=== PATIENT | female | born 1955 | race Caucasian/White ===

== ENCOUNTER 2019-04-18 07:54 | Outpatient (CLI) | payer BC, SELFPAY ==
--- NOTE | ~2019-04-18 | MM_ITS ---
EXAMINATION: MM screening [facility] BI w nancy HISTORY: Screening mammogram TECHNIQUE: Craniocaudal and mediolateral oblique 3-D tomosynthesis images were obtained and synthetic 2-D images were generated. CAD analysis was submitted and interpreted. COMPARISON: No prior mammogram is available for comparison at this institution. BREAST PARENCHYMAL COMPOSITION: The breasts are almost entirely fatty. FINDINGS: RIGHT BREAST: There is a 5 mm mass in the anterior third of the upper outer quadrant of the breast 5. 8 cm from the nipple. LEFT BREAST: An asymmetry is present in the posterior third of the outer breast on the craniocaudal v iew 13 cm from the nipple. IMPRESSION: 1. Bilateral breast findings as described above. 2. Additional mammographic views and possible breast ultrasound are recommended. BI-RADS Category 0: Incomplete: Needs additional imaging evaluation. Reviewed, dictated and finalized at location A. ROCK MINER IMPRESSION: 1. Bilateral breast findings as described above. 2. Additional mammographic views and possible breast ultrasound are recommended . BI-RADS Category 0: Incomplete: Needs additional imaging evaluation.
[2019-04-18 08:09] LABS: Basophils Absolute Auto 0.09 K/mm3 (0.00-0.10); Basophils Percent Auto 1.2 % (0.0-1.0); Eosinophils Absolute Auto 0.26 K/mm3 (0.02-0.50); Eosinophils Percent Auto 3.4 % (1.0-6.0); Hematocrit 38.1 % (35.0-49.0); Hemoglobin 12.7 g/dL (12.0-15.0); Immature Granulocyte Absolute 0.01 K/mm3 (0.00-0.00); Immature Granulocyte Percent A 0.1 % (0.0-0.0); Lymphocytes Absolute Auto 2.25 K/mm3 (1.10-4.50); Mean Corpuscular HGB Conc 33.3 g/dL (32.0-36.0); Mean Corpuscular Hemoglobin 31.8 pg (27.0-31.0); Mean Corpuscular Volume 95.5 fL (78.0-102.0); Mean Platelet Volume 10.1 fl (9.2-11.8); Monocytes Absolute Auto 0.88 K/mm3 (0.10-0.90); Monocytes Percent Auto 11.3 % (2.0-11.0); Neutrophils Absolute Auto 4.3 K/mm3 (1.7-7.2); Platelet Count Result 304 K/mm3 (150-420); Red Blood Count 3.99 M/mm3 (4.20-5.40); Red Cell Distribution Width 12.4 % (11.6-14.4); White Blood Count 7.8 K/mm3 (4.8-10.8)
[2019-04-18 08:42] LABS: Alanine Aminotransferase 23 U/L (14-59); Albumin Level 3.8 g/dL (3.4-5.0); Alkaline Phosphatase 80 U/L (46-116); Anion Gap 13.3 mmol/L (7-16); Aspartate Amino Transferase 15 U/L (15-37); Bilirubin,Total 0.4 mg/dL (0.00-1.00); Blood Urea Nitrogen 18 mg/dL (7-18); Carbon Dioxide 29 mmol/L (21-32); Chloride 106 mmol/L (98-108); Cholesterol 189 mg/dL (0-200); Estimated Glomerular Filt Rate > 60; Glucose 96 mg/dL (70-99); HDL Direct 62 mg/dL (40-60); LDL Cholesterol Calculated 119 mg/dL (<130); Osmolality Calculated 299 mOsm/kg (285-295); Potassium 4.3 mmol/L (3.5-5.1); Sodium 144 mmol/L (136-145); Total Protein 7.3 g/dL (6.4-8.2); Triglycerides 39 mg/dL (0-150)
== END 2019-04-18 07:55 | disposition home or self-care (01) ==
PROVIDERS: PCP Family Medicine; Visit Provider Nurse Practitioner Family
DX: E78.2 Mixed hyperlipidemia (principal); I10 Essential (primary) hypertension; Z12.31 Encounter for screening mammogram for malignant neoplasm of breast
CPT/HCPCS: 36415; 77063; 77067; 80053; 80061; 85025

== ENCOUNTER 2019-05-09 09:27 | Outpatient (CLI) | payer BC, SELFPAY ==
--- NOTE | ~2019-05-09 | MMUS_ITS ---
EXAMINATION: MM diagnostic preethi BI w nancy, US breast RT limited HISTORY: Left breast asymmetry and right breast mass on screening mammogram TECHNIQUE: Additional 3-D tomosynthesis images of the breasts were performed and synthetic 2-D images were generated. And spot compression views are also obtained. CAD analysis was submitted and interpr eted. High resolution limited brain breast ultrasound was performed. COMPARISON: 04/18/2019 FINDINGS: MAMMOGRAPHIC FINDINGS: Right breast: There is a 5 mm oval, circumscribed, equal density mass in the anterior third of the br east at the 10:00 to 11:00 location 4 cm from the nipple. No associated architectural distortion or s uspicious calcification are identified. Left breast: No persistent asymmetry is identified with spot compression views of the left breast. ULTRASOUND: There is a 5 mm x 3 mm oval, circumscribed, parallel, hypoechoic mass with no posterior features or i nternal vascularity at the 10:00 location 5 cm from the nipple. IMPRESSION: 1. Probably benign right breast mass. 2. Recommend 6 month follow-up right diagnostic mammogram and ultrasound. BI-RADS category 3, probably benign findings. Reviewed, dictated and finalized at location A. SLATIVE CORRESPONDENT IMPRESSION: 1. Probably benign right breast mass. 2. Recommend 6 month follow-up right diagnostic mammogram and ultrasound. BI-RADS category 3, probably benign findings.
[2019-05-09 09:39] LABS: Basophils Absolute Auto 0.05 K/mm3 (0.00-0.10); Basophils Percent Auto 0.6 % (0.0-1.0); Eosinophils Absolute Auto 0.19 K/mm3 (0.02-0.50); Eosinophils Percent Auto 2.4 % (1.0-6.0); Immature Granulocyte Absolute 0.02 K/mm3 (0.00-0.00); Immature Granulocyte Percent A 0.3 % (0.0-0.0); Lymphocytes Absolute Auto 2.12 K/mm3 (1.10-4.50); Lymphocytes Percent Auto 27.1 % (18.0-42.0); Mean Corpuscular HGB Conc 32.5 g/dL (32.0-36.0); Mean Corpuscular Volume 95.5 fL (78.0-102.0); Mean Platelet Volume 10.1 fl (9.2-11.8); Monocytes Absolute Auto 0.72 K/mm3 (0.10-0.90); Monocytes Percent Auto 9.2 % (2.0-11.0); Neutrophils Absolute Auto 4.7 K/mm3 (1.7-7.2); Neutrophils Percent Auto 60.4 % (50.0-70.0); Platelet Count Result 339 K/mm3 (150-420); Red Blood Count 4.19 M/mm3 (4.20-5.40); Red Cell Distribution Width 12.4 % (11.6-14.4); White Blood Count 7.8 K/mm3 (4.8-10.8)
[2019-05-09 10:24] LABS: Alanine Aminotransferase 30 U/L (14-59); Albumin Level 3.9 g/dL (3.4-5.0); Alkaline Phosphatase 87 U/L (46-116); Aspartate Amino Transferase 16 U/L (15-37); Bilirubin,Total 0.5 mg/dL (0.00-1.00); Blood Urea Nitrogen 17 mg/dL (7-18); Calcium 8.9 mg/dL (8.5-10.1); Carbon Dioxide 29 mmol/L (21-32); Chloride 107 mmol/L (98-108); Cholesterol 180 mg/dL (0-200); Estimated Glomerular Filt Rate > 60; Glucose 99 mg/dL (70-99); HDL Direct 65 mg/dL (40-60); LDL Cholesterol Calculated 106 mg/dL (<130); Osmolality Calculated 299 mOsm/kg (285-295); Sodium 144 mmol/L (136-145); Total Protein 7.6 g/dL (6.4-8.2); Triglycerides 45 mg/dL (0-150)
== END 2019-05-09 09:28 | disposition home or self-care (01) ==
LOC: CHSLAB 09:31
PROVIDERS: PCP Family Medicine; Visit Provider Nurse Practitioner Family
DX: E78.2 Mixed hyperlipidemia (principal); I10 Essential (primary) hypertension; Z12.31 Encounter for screening mammogram for malignant neoplasm of breast
CPT/HCPCS: 36415; 76642; 77062; 77066; 80053; 80061; 85025; G0279

== ENCOUNTER 2020-11-26 08:14 | Outpatient (CLI) | payer MEDICARE, OTHER, SELFPAY ==
--- NOTE | ~2020-11-26 | DEXA_ITS ---
Bone Density Report Name: Cecilia Marquez Age: 65 Sex: Female Ethnicity: White Date of : 1955 Indication: postmenopausal; screening for osteoporosis; Referring Provider: Angela Munoz Study: Bone densitometry was performed. Exam Date: November 26, 2020 Accession number: [id number] Bone Density: Region BMD T-score Z-score Classification AP Spine(L1-L4) 1.020 -0.2 1.6 Normal Femoral Neck (Left) 0.880 0.3 1.8 Normal Total Hip (Left) 1.057 0.9 2.2 Normal Femoral Neck (Right) 0.839 -0.1 1.5 Normal Total Hip (Right) 1.061 1.0 2.2 Normal Femoral Neck Mean 0.860 0.1 1.6 Normal Total Hip Mean 1.059 1.0 2.2 Normal World Health Organization criteria for BMD impression classify patients as: Normal (T-score at or above -1.0), Osteopenia (T-score between -1.0 and -2.5), or Osteoporosis (T-score at or below -2.5). 10-year Fracture Risk: FRAX not reported because: All T-scores for Spine Total, Hip Total, Femoral Neck at or above -1.0 Clinical Information Provided by Patient: Has used the following medications: Vitamin D Patient maximum height was 62 Menopause Age: 55 No regular weight bearing exercise Does not regularly consume dairy products Drinks caffeinated beverages Onset of menses at age 14 Number of children 2 Impression: The patient has normal bone mass. Discussion: BONE DENSITY IS ABOVE THE MINIMUM DESIRABLE LEVEL AT ALL SKELETAL SITES TESTED. This patient?s bone mineral density is above the minimum desirable level (T-score -1.0 or better) at all sites measured. The patient should follow a healthful lifestyle (good nutrition with adequate calcium and vitamin D, and appropriate weight-bearing exercise). Follow-Up: Consider repeating this study in 5 years or sooner if there is some new clinical indication. Reported by: Dr. Donnell Hoffmann on 11/26/2020 8:37:00 AM. Reviewed, dictated and finalized at location ARaimundo MARRUFO
== END 2020-11-26 08:15 | disposition home or self-care (01) ==
LOC: CHSIMG 08:15
PROVIDERS: PCP Family Medicine; Visit Provider Student in an Organized Health Care Education/Training Program
DX: Z78.0 Asymptomatic menopausal state (principal)
CPT/HCPCS: 77080

== ENCOUNTER 2020-12-21 08:44 | Outpatient (CLI) | payer MEDICARE, OTHER, SELFPAY ==
--- NOTE | ~2020-12-21 | MMUS_ITS ---
EXAMINATION: MM diagnostic preethi BI w nancy, US breast BI limited HISTORY: Follow-up for probably benign right breast mass from diagnostic mammogram dated 05/09/2019 TECHNIQUE: Craniocaudal, mediolateral, and mediolateral oblique 3-D tomosynthesis images of the breas ts were performed and synthetic 2-D images were generated. CAD analysis was submitted and interpreted . High resolution limited bilateral breast ultrasound was performed. COMPARISON: 05/09/2019, 04/18/2019 BREAST PARENCHYMAL COMPOSITION: The breasts are almost entirely fatty. FINDINGS: MAMMOGRAPHIC FINDINGS: Right breast: There is a stable 5 mm oval, circumscribed, equal density mass in the anterior third ou ter breast at the 10:00 location 4 cm from the nipple. There has been no suspicious interval change. Left breast: There is no evidence of suspicious mass, calcification, or architectural distortion to suggest malignancy. There has been no suspicious interval change. ULTRASOUND: Right breast: There is a stable 5 mm right 3 mm oval, circumscribed, parallel, hypoechoic mass with n o posterior features or internal vascularity at the 10:00 location 5 cm from the nipple. Left breast: There are mildly dilated subareolar ducts. Cysts are noted at the 12:00 location and 2:0 0 location. IMPRESSION: 1. Stable right breast mass considered benign given the essentially two years of interval stability. 2. Recommend routine screening mammography in one year. BI-RADS Category 2: Benign finding(s). Reviewed, dictated and finalized at location A. IMPRESSION: 1. Stable right breast mass considered benign given the essentially two years o f interval stability. 2. Recommend routine screening mammography in one year. BI-RADS Category 2: Benign finding(s).
== END 2020-12-21 08:45 | disposition home or self-care (01) ==
LOC: CHSIMG 08:46
PROVIDERS: PCP Family Medicine; Visit Provider Student in an Organized Health Care Education/Training Program
DX: R92.8 Other abnormal and inconclusive findings on diagnostic imaging of breast (principal); N63.12 Unspecified lump in the right breast, upper inner quadrant
CPT/HCPCS: 76642; 77062; 77066; G0279

== ENCOUNTER 2021-12-09 08:06 | Outpatient (CLI) | payer MEDICARE, SELFPAY ==
[2021-12-09 08:19] LABS: Hematocrit 36.8 % (35.0-42.0); Hemoglobin 12.5 g/dL (11.7-13.8); Mean Corpuscular Hemoglobin 32.2 pg (27.0-31.0); Mean Corpuscular Volume 94.8 fL (78.0-102.0); Mean Platelet Volume 9.9 fl (9.2-11.8); Platelet Count Result 331 K/mm3 (150-420); Red Blood Count 3.88 M/mm3 (4.20-5.40); White Blood Count 7.2 K/mm3 (4.8-10.8)
[2021-12-09 09:04] LABS: Alanine Aminotransferase 27 U/L (14-59); Albumin Level 3.5 g/dL (3.4-5.0); Alkaline Phosphatase 74 U/L (46-116); Anion Gap 6 mmol/L (8-16); Aspartate Amino Transferase 17 U/L (15-37); Bilirubin,Total 0.4 mg/dL (0.00-1.00); Blood Urea Nitrogen 17 mg/dL (7-18); Carbon Dioxide 29 mmol/L (21-32); Chloride 105 mmol/L (98-108); Cholesterol 205 mg/dL (0-200); Estimated Glomerular Filt Rate > 60; Glucose 101 mg/dL (70-99); HDL Direct 64 mg/dL (40-60); LDL Cholesterol Calculated 132 mg/dL (<130); Osmolality Calculated 291 mOsm/kg (285-295); Potassium 4.1 mmol/L (3.5-5.1); Sodium 140 mmol/L (136-145); Total Protein 6.7 g/dL (6.4-8.2); Triglycerides 47 mg/dL (0-150)
[2021-12-09 10:49] LABS: Appearance Urine Slightly Cloudy (Clear); Bilirubin Urine Negative (Negative); Color Urine Light Yellow (Yellow); Glucose Urine UA Negative (Negative); Ketones Urine Negative (Negative); Leukocyte Esterase Ur 3+ (Negative); Nitrate Urine Positive (Negative); Protein Urine Negative (Negative); Urobilinogen Urine 0.2 mg/dL (0.2-1.0)
[2021-12-09 10:55] LABS: Add Urine Microscopic? YES; Bacteria Urine 4+ /hpf; Blood Urine Trace-Intact (Negative); RBC Urine None seen /hpf (0-2); Squamous Epithelial Cell Urine Few /hpf (Few); WBC Urine >75 /hpf (0-3)
== END 2021-12-09 08:07 | disposition home or self-care (01) ==
LOC: CHSLAB 08:08
PROVIDERS: PCP Family Medicine; Visit Provider Family Medicine
DX: R82.90 Unspecified abnormal findings in urine (principal); I10 Essential (primary) hypertension
CPT/HCPCS: 36415; 80053; 80061; 81001; 85027

== ENCOUNTER 2022-12-30 07:49 | Outpatient (CLI) | payer MEDICARE, SELFPAY ==
--- NOTE | ~2022-12-30 | MM_ITS ---
EXAMINATION: MM screening preethi BI w nancy HISTORY: Screening mammogram TECHNIQUE: Craniocaudal and mediolateral oblique 3-D tomosynthesis images were obtained and synthetic 2-D images were generated. CAD analysis was submitted and interpreted. COMPARISON: 12/21/2020 diagnostic bilateral mammogram and Limited bilateral breast ultrasound BREAST PARENCHYMAL COMPOSITION: The breasts are almost entirely fatty. FINDINGS: There is no evidence of suspicious mass, calcification, or architectural distortion to sugg est malignancy in either breast. There has been no suspicious interval change. IMPRESSION: 1. No mammographic evidence of malignancy. 2. Recommend routine screening mammography in one year. BI-RADS Category 1: Negative Reviewed, dictated and finalized at location A.
[2022-12-30 08:10] LABS: Basophils Absolute Auto 0.04 K/mm3 (0.00-0.10); Basophils Percent Auto 0.5 % (0.0-1.0); Eosinophils Absolute Auto 0.19 K/mm3 (0.02-0.50); Eosinophils Percent Auto 2.4 % (1.0-6.0); Hematocrit 37.5 % (35.0-42.0); Hemoglobin 12.5 g/dL (11.7-13.8); Immature Granulocyte Absolute 0.02 K/mm3 (0.00-0.00); Immature Granulocyte Percent A 0.3 % (0.0-0.0); Lymphocytes Absolute Auto 2.65 K/mm3 (1.10-4.50); Lymphocytes Percent Auto 33.6 % (18.0-42.0); Mean Corpuscular HGB Conc 33.3 g/dL (32.0-36.0); Mean Corpuscular Hemoglobin 31.6 pg (27.0-31.0); Mean Corpuscular Volume 94.9 fL (78.0-102.0); Mean Platelet Volume 10.2 fl (9.2-11.8); Monocytes Absolute Auto 0.62 K/mm3 (0.10-0.90); Monocytes Percent Auto 7.9 % (2.0-11.0); Neutrophils Absolute Auto 4.4 K/mm3 (1.7-7.2); Neutrophils Percent Auto 55.3 % (50.0-70.0); Platelet Count Result 372 K/mm3 (150-420); Red Blood Count 3.95 M/mm3 (4.20-5.40); Red Cell Distribution Width 12.2 % (11.6-14.4); White Blood Count 7.9 K/mm3 (4.8-10.8)
[2022-12-30 08:26] LABS: Alanine Aminotransferase 11 U/L (14-59); Albumin Level 3.5 g/dL (3.4-5.0); Alkaline Phosphatase 73 U/L (46-116); Anion Gap 8 mmol/L (8-16); Aspartate Amino Transferase 14 U/L (15-37); Bilirubin,Total 0.4 mg/dL (0.00-1.00); Blood Urea Nitrogen 20 mg/dL (7-18); Calcium 9.4 mg/dL (8.5-10.1); Carbon Dioxide 27 mmol/L (21-32); Chloride 106 mmol/L (98-108); Cholesterol 203 mg/dL (0-200); Estimated Glomerular Filt Rate > 60; Glucose 96 mg/dL (70-99); HDL Direct 60 mg/dL (40-60); LDL Cholesterol Calculated 129 mg/dL (<130); Osmolality Calculated 294 mOsm/kg (285-295); Sodium 141 mmol/L (136-145); Total Protein 6.9 g/dL (6.4-8.2); Triglycerides 68 mg/dL (0-150)
== END 2022-12-30 07:50 | disposition home or self-care (01) ==
LOC: CHSIMG 07:50
PROVIDERS: PCP Family Medicine; Visit Provider Family Medicine
DX: Z12.31 Encounter for screening mammogram for malignant neoplasm of breast (principal); I10 Essential (primary) hypertension
CPT/HCPCS: 36415; 77063; 77067; 80053; 80061; 85025

== ENCOUNTER 2023-01-19 08:35 | Outpatient (CLI) | payer MEDICARE, SELFPAY ==
--- NOTE | 2023-01-30 15:41 | WPDHOMESLEEP ---
Sleep Study - Home Unattended Date of Study: 01/19/23 Ordering Provider: Ankit Middleton DO Interpreting Provider: Cee Ramos DO Home Sleep Study Type: Watch PAT Height: 1.57 m Weight: 74.843 kg Body Mass Index: 30.2 Neck Circumference (inches): 13 [place]: 17 Reason for Sleep Study Snoring, daytime hypersomnia? Sleep History Patient is a 67-year-old female with history of hypertension and GERD who underwent a home sleep test for evaluation of snoring and daytime hypersomnia.? She never awakens from sleep short of breath. She rarely awakens at night with heartburn, belching or cough.? She constantly snores and constantly snores loudly enough that others complain. She occasionally has trouble sleeping when she has a cold. She never suddenly wakes up gasping for breath during the night. She never has breathing problems at night. She never sweats excessively at night. She never notices her heart pounding or beating irregularly during the night. She occasionally falls asleep during the day. She never falls asleep while driving. She never experiences loss of muscle tone with strong emotion. She never feels paralyzed on waking or falling asleep. She never experiences vivid dreams upon waking or falling asleep. She does not feel afraid of going to sleep. She never has nightmares. She rarely recalls her dreams. She occasionally has thoughts racing through her mind when she is trying to fall asleep. She never feels sad or depressed. She never feels anxiety or worry about things. She rarely notices parts of her body jerk. She occasionally kicks during the night. She never feels crawling or aching feelings in her legs. She occasionally feels leg pain at night. She never grinds her teeth during sleep and never has morning jaw pain. She never feels bothered by pain during the day and is never awakened by pain during the night. She never wakes up feeling stiff, sore, or achy in the morning.? Normal bedtime is around 11 pm on the weekdays and same on the weekends, falling asleep quickly. She typically gets about 6 to 7 hours of sleep per night. Her wake up time is around 6 am on the weekdays and same on the weekends. She typically wakes up around 2 times per night, awake for a few minutes and she go to the bathroom.? Habits:? Never tobacco smoker. Drinks about 32oz caffeinated beverages per day. No alcohol or recreational substances.? [facility] Past Medical History Medical History (Updated 01/30/23 @ 15:47 by Cee Ramos DO) Abnormal mammogram GERD (gastroesophageal reflux disease) Hypertension Surgical History Surgical History History of tubal ligation Family History Family History Mother Hepatitis C Hypertension Father , Age 48 Brain aneurysm Hypertension Sibling Acute myocardial infarction Hypertension Social History Social History Smoking status: Never smoker Alcohol intake: never Substance use: never Living arrangements: with family Additional living arrangements comments: Occupation/Education: retired Gender identity (if verbalized by the patient): Female Medications Home Medications Medication Instructions Recorded Confirmed Type cholecalciferol (vitamin D3) 125 125 mcg PO DAILY 12/07/21 History mcg (5,000 unit) capsule lisinopril 10 See Rx Instructions .Route 12/02/22 Rx mg-hydrochlorothiazide 12.5 mg .COMPLEX #90 tabs tablet Sleep Procedure The study was completed using HomeWellnessT, a technically adequate device with seven channels: peripheral arterial tone, actigraphy, body position, snore, respiratory movement, pulse oximetry, sleep staging, and heart rate. Prior to using the device, the patient received verbal and written instructions for its application and
[2023-01-30 15:48] VITALS: BMI 30.2
== END 2023-01-20 10:48 | disposition home or self-care (01) ==
LOC: ANHCSM 08:36
PROVIDERS: PCP Family Medicine; Visit Provider Family Medicine
DX: R06.83 Snoring (principal); G47.33 Obstructive sleep apnea (adult) (pediatric)
CPT/HCPCS: 95800

== ENCOUNTER 2024-03-18 08:54 | Outpatient (CLI) | payer MEDICARE, SELFPAY ==
[2024-03-18 09:25] LABS: Add Urine Microscopic? YES; Appearance Urine Cloudy (Clear); Bilirubin Urine Negative (Negative); Blood Urine Trace-intact (Negative); Color Urine Light Yellow (Yellow); Glucose Urine UA Negative (Negative); Ketones Urine Negative (Negative); Leukocyte Esterase Ur 3+ (Negative); Nitrate Urine Positive (Negative); Protein Urine Trace (Negative); Specific Grav Ur 1.015 (1.010-1.020); Urobilinogen Urine 0.2 mg/dL (0.2-1.0); pH Urine 8.5 (5.0-8.0)
[2024-03-18 09:38] LABS: RBC Urine None seen /hpf (0-2); WBC Urine >75 /hpf (0-3)
[2024-03-18 09:39] LABS: Bacteria Urine 3+ /hpf; Squamous Epithelial Cell Urine Occasional /hpf (Few)
== END 2024-03-18 08:55 | disposition home or self-care (01) ==
LOC: CHSLAB 08:55
PROVIDERS: PCP Family Medicine; Visit Provider Family Medicine
DX: R30.0 Dysuria (principal)
CPT/HCPCS: 81001

== ENCOUNTER 2024-06-03 07:06 | Outpatient (CLI) | payer MEDICARE, SELFPAY ==
--- OUTSIDE RECORDS SUMMARY | 2024-06-03 07:09 | XMS_ITS | Patient Health Summary ---
Author Organization [facility] [employer] Address [address] [place] [address] Care Team Providers Care Girls Tennis Coach Name Role Phone Mayito Triplett MD Primary Care Provider [phone] Note from [facility] [employer] [facility],non-owned Affiliates and Associated Physician Practices is amultiple site organization consisting of ambulatory clinics and hospital sitesin [place], [place], [place] and [place]. This disclosure is being madepursuant to the Care Everywhere program and may not contain all information available regarding this patient. Last updated 17.[facility] [employer] Allergies No known active allergies Medications Be aware that medications may not be up to date on this document. Always verify current medications with the patient. No known medications Social History Tobacco Use Types Packs/Day Years Used Date Smoking Tobacco: Never Assessed Sex and Gender Information Value Date Recorded Sex Assigned at Not on file Gender Identity Not on file Sexual Orientation Not on file Last Filed Vital Signs Vital Sign Reading Time Taken Comments Blood Pressure 126/80 10/15/2016 10:41 AM CDT Pulse 64 10/15/2016 10:41 AM CDT Temperature 36.6 C (97.9 F) 10/15/2016 10:41 AM CDT Respiratory Rate - - Oxygen Saturation 97% 10/15/2016 10:41 AM CDT Inhaled Oxygen Concentration - - Weight 73 kg (161 lb) 10/15/2016 10:41 AM CDT Height 157.5 cm (5' 2 ) 10/15/2016 10:41 AM CDT Body Mass Index 29.45 10/15/2016 10:41 AM CDT Procedures * STREP A SCREEN - POINT OF CARE (AMB) STL(Performed 10/15/2016) Performed for Strep throat Results * (ABNORMAL) STREP A SCREEN - POINT OF CARE (AMB) STL (10/15/2016) Strep A Rapid POCT Positive(A) Negative Strep A Internal Control Present Lot # [id number] Expiration Date [id number] Throat ENTIRE THROAT (SURFACE REGION OF NECK) / Unknown 10/15/2016 Rachel Talavera SELLING SPECIALIST-CONTINUOUS DRYOUT OPERATOR LAB - POINT O F CARE ORDERABLES Care Teams Girls Tennis Coach Relationship Specialty Start Date End Date Mayito Triplett MD [address] [place] [address] PCP - General Internal Medicine 10/15/16
--- OUTSIDE RECORDS SUMMARY | 2024-06-03 07:09 | XMS_ITS | Referral Summary ---
Author Organization [address] Address [address] [place] [address] Care Team Providers Care Dictaphone Technician Name Role Phone aMyito Triplett MD Primary Care Provider [phone] [phone] Allergies No known active allergies Medications raNITIdine (ZANTAC) 300 mg tablet Take 300 mg by mouth nightly Active lisinopril-hydr oCHLOROthiazide (ZESTORETIC) 10-12.5 mg per tabletIndicatio ns:hypertension Take 1 tablet by mouth daily 30 tablet 5 04/15/2019 Active Active Problems Problem Noted Date Diagnosed Date Essential hypertension 04/15/2019 Assessment & Plan (05/16/2019 10:30 AM LOCKSMITH APPRENTICE): She has responded well to the medication. Still awaiting labs from outside facility. Assessment & Plan (04/15/2019 3:27 PM LOCKSMITH APPRENTICE): Will start NATASHA-inhibitor and thiazide diuretic. Follow-up in 30 days. Restrict sodium in diet Gastroesophageal reflux disease without esophagi tis 04/15/2019 Assessment & Plan (05/16/2019 10:30 AM LOCKSMITH APPRENTICE): Stable today. Assessment & Plan (04/15/2019 3:25 PM LOCKSMITH APPRENTICE): Continue use of Zantac. GERD diet reviewed. She is going to start a diet restricting carbs. Screening for malignant neoplasm of breast 04/15 Assessment & Plan (05/16/2019 10:30 AM LOCKSMITH APPRENTICE): Still awaiting results from outside facility Mixed hyperlipidemia 04/15/2019 Shoulder joint painful on movement 06/02/2015 Overview (06/24/2016): Pain of left shoulder joint on movement Shoulder pain 06/02/2015 Overview (06/24/2016): Left anterior shoulder pain Immunizations Immunization Administration Dates Next Due Influenza, Unspecified 05/16/2019(Deferr ed: Patient Refused),04/15/2019(Deferred: Patient Refused),03/20/2018(Deferred: Patient Refused),03/20/2018(Deferred: Patient Refused) Social History Tobacco Use Types Packs/Day Years Used Date Smoking Tobacco: Never Smokeless Tobacco: Never Alcohol Use Standard Drinks/Week Comments No 0 (1 standard drink = 0.6 oz pur e alcohol) PHQ-2 Answer Date Recorded PHQ-2 Score 0 04/15/2019 Personal Safety Answer Date Recorded Getting School Help Needed Not on file 06/01 Comments Unknown Sex and Gender Information Value Date Recorded Sex Assigned at Not on file Legal Sex Female 8:14 AM LOCKSMITH APPRENTICE Gender Identity Not on file Sexual Orientation Not on file Last Filed Vital Signs Vital Sign Reading Time Taken Comments Blood Pressure 134/82 05/16/2019 10:12 AM LOCKSMITH APPRENTICE Pulse 74 05/16/2019 10:12 AM LOCKSMITH APPRENTICE Temperature 36.9 C (98.4 F) 05/16/2019 10:12 AM LOCKSMITH APPRENTICE Respiratory Rate 16 05/16/2019 10:12 AM LOCKSMITH APPRENTICE Oxygen Saturation 95% 05/16/2019 10:12 AM LOCKSMITH APPRENTICE Inhaled Oxygen Concentration - - Weight 73.8 kg (162 lb 9.6 oz) 05/16/2019 10:12 AM LOCKSMITH APPRENTICE Height 157.5 cm (5' 2 ) 05/16/2019 10:12 AM LOCKSMITH APPRENTICE Body Mass Index 29.74 05/16/2019 10:12 AM LOCKSMITH APPRENTICE Plan of Treatment Not on file [place] [place] [address] Care Teams Dictaphone Technician Relationship Specialty Start Date End Date Mayito Triplett MD [address] [place] [address] PCP - General 06/02/15
--- OUTSIDE RECORDS SUMMARY | 2024-06-03 07:09 | XMS_ITS | Clinical Summary ---
Author Organization [address] Address [address] [place] [address] Care Team Providers Care Tele Grout Sewer Line Repairer Name Role Phone Mayito Triplett MD Primary Care Provider [phone] [phone] Allergies No known active allergies Medications raNITIdine (ZANTAC) 300 mg tablet Take 300 mg by mouth nightly Active lisinopril-hydr oCHLOROthiazide (ZESTORETIC) 10-12.5 mg per tabletIndicatio ns:hypertension Take 1 tablet by mouth daily 30 tablet 5 04/15/2019 Active Active Problems Problem Noted Date Diagnosed Date Essential hypertension 04/15/2019 Assessment & Plan (05/16/2019 10:30 AM PIE CRUST MIXER): She has responded well to the medication. Still awaiting labs from outside facility. Assessment & Plan (04/15/2019 3:27 PM PIE CRUST MIXER): Will start NATASHA-inhibitor and thiazide diuretic. Follow-up in 30 days. Restrict sodium in diet Gastroesophageal reflux disease without esophagi tis 04/15/2019 Assessment & Plan (05/16/2019 10:30 AM PIE CRUST MIXER): Stable today. Assessment & Plan (04/15/2019 3:25 PM PIE CRUST MIXER): Continue use of Zantac. GERD diet reviewed. She is going to start a diet restricting carbs. Screening for malignant neoplasm of breast 04/15 Assessment & Plan (05/16/2019 10:30 AM PIE CRUST MIXER): Still awaiting results from outside facility Mixed hyperlipidemia 04/15/2019 Shoulder joint painful on movement 06/02/2015 Overview (06/24/2016): Pain of left shoulder joint on movement Shoulder pain 06/02/2015 Overview (06/24/2016): Left anterior shoulder pain Immunizations Immunization Administration Dates Next Due Influenza, Unspecified 05/16/2019(Deferr ed: Patient Refused),04/15/2019(Deferred: Patient Refused),03/20/2018(Deferred: Patient Refused),03/20/2018(Deferred: Patient Refused) Surgical History Surgery Date Site/Laterality Comments TUBAL LIGATION 1979 tubal ligation Medical History Medical History Date Comments Hypertension Family History Medical History Relation Name Comments Other Brother cleft palate; Brain Aneurysm Father brain aneurys m; Kidney disease Mother Other Mother HEP C; Hypertension Sister 3 olders Hypertension; Other Sister 4 Alive and well; Other Sister 5 Alive and well; Relation Name Status Comments Brother Father (Age 48) Mother (Age 78) Sister 1 Alive Sister 2 Alive Sister 3 olders Sister 4 Sister 5 Social History Tobacco Use Types Packs/Day Years [...] on file Legal Sex Female 8:14 AM PIE CRUST MIXER Gender Identity Not on file Sexual Orientation Not on file Obstetrics History Last Filed Vital Signs Vital Sign Reading Time Taken Comments Blood Pressure 134/82 05/16/2019 10:12 AM PIE CRUST MIXER Pulse 74 05/16/2019 10:12 AM PIE CRUST MIXER Temperature 36.9 C (98.4 F) 05/16/2019 10:12 AM PIE CRUST MIXER Respiratory Rate 16 05/16/2019 10:12 AM PIE CRUST MIXER Oxygen Saturation 95% 05/16/2019 10:12 AM PIE CRUST MIXER Inhaled Oxygen Concentration - - Weight 73.8 kg (162 lb 9.6 oz) 05/16/2019 10:12 AM PIE CRUST MIXER Height 157.5 cm (5' 2 ) 05/16/2019 10:12 AM PIE CRUST MIXER Body Mass Index 29.74 05/16/2019 10:12 AM PIE CRUST MIXER Plan of Treatment Not on file Insurance [facility] Care Teams Tele Grout Sewer Line Repairer Relationship Specialty Start Date End [place] [address] PCP - General 06/02/15
--- OUTSIDE RECORDS SUMMARY | 2024-06-03 07:09 | XMS_ITS | Referral Summary ---
Author Organization [facility] [employer] Address [address] [place] [address] Care Team Providers Care Accountant Machine Processing Name Role Phone Mayito Triplett MD Primary Care Provider [phone] [phone] Source Comments [facility],non-owned Affiliates and Associated Physician Practices is amultiple site organization consisting of ambulatory clinics and hospital sitesin [place], [place], [place] and [place]. This disclosure is being madepursuant to the Care Everywhere program and may not contain all information available regarding this patient. Last updated 17.[employer] [facility] Allergies No known active allergies Medications Be [...] Mass Index 29.45 10/15/2016 10:41 AM CDT Plan of Treatment Not on file Care Teams Accountant Machine Processing Relationship Specialty Start Date End [place] [id number] PCP - General Internal Medicine 10/15/16
--- OUTSIDE RECORDS SUMMARY | 2024-06-03 07:09 | XMS_ITS | Clinical Summary ---
Author Organization [facility] [employer] Address [address] [place] [address] Care Team Providers Care Die Repairer Trimmer Dies Name Role Phone Mayito Triplett MD Primary Care Provider [phone] [phone] Source Comments [facility] and [facility] Practices is amultiple site organization consisting of ambulatory clinics and hospital sitesin [place], [place], [place] and [place]. This disclosure is being madepursuant to the Care Everywhere program and may not contain all information available regarding this patient. Last updated 17.[facility] Allergies No known active allergies Medications Be [...] 10/15/2016 10:41 AM CDT Plan of Treatment Health Maintenance Due Date Last Done Comments BONE DENSITY TESTING 1955 COLOGUARD (AGES 45-75) - COL ON CA SCREENING 1955 COLON MONITORING 1955 COLONOSCOPY - COLON CA SCREENING 1955 CT COLONOGRAPHY - COLON CA SCREENING 1955 Colorectal Cancer Screening 1955 FIT - COLON CA SCREENING 1955 FLEX SIG - COLON CA SCREENING 1955 LIPID TESTING 1955 MAMMOGRAM 1955 HEPATITIS C SCREENING 01/31/1973 DTAP/TDAP/TD VACCINES (1 - Tdap) 1974 PNEUMOCOCCAL VACCINE 50+ (1 of 1 - PCV) 2005 ZOSTER VACCINE (1 of 2) 2005 SCREENING FOR DIABETES 10/15/2016 COVID-19 VACCINE (1 - 2023-2 5 season) 2023 INFLUENZA VACCINE (#1) 2023 DEPRESSION SCREENING 03/20/2024 Respiratory Syncytial Virus (RSV) Vaccine Pt: or over 60 yrs (1 - 1-dose 75+ series) 2030 HEPATITIS B VACCINE Aged Out No longe r eligible based on patient's age to complete this topic HIB VACCINE Aged Out No longer eligi ble based on patient's age to complete this topic HPV VACCINE Aged Out No longer eligi ble based on patient's age to complete this topic MENINGOCOCCAL (Group B) VACC INE SHARED DECISION-MAKING Aged Out No longer eligibl e based on patient's age to complete this topic MENINGOCOCCAL GROUPS A/C/Y/W VACCINE Aged Out No longer eligible b ased on patient's age to complete this topic Care Teams Die Repairer Trimmer Dies Relationship Specialty Start Date End Date [place] [phone] PCP - General Internal Medicine 10/15/16
[2024-06-03 07:27] LABS: Basophils Absolute Auto 0.07 K/mm3 (0.00-0.10); Basophils Percent Auto 0.9 % (0.0-1.0); Eosinophils Absolute Auto 0.24 K/mm3 (0.02-0.50); Eosinophils Percent Auto 3.2 % (1.0-6.0); Hematocrit 39.2 % (35.0-42.0); Hemoglobin 12.7 g/dL (11.7-13.8); Immature Granulocyte Absolute 0.01 K/mm3 (0.00-0.00); Immature Granulocyte Percent A 0.1 % (0.0-0.0); Lymphocytes Absolute Auto 2.72 K/mm3 (1.10-4.50); Lymphocytes Percent Auto 36.8 % (18.0-42.0); Mean Corpuscular HGB Conc 32.4 g/dL (32-36); Mean Corpuscular Hemoglobin 30.7 pg (27.0-31.0); Mean Corpuscular Volume 94.7 fL (78.0-102.0); Mean Platelet Volume 10.2 fl (9.2-11.8); Monocytes Absolute Auto 0.71 K/mm3 (0.10-0.90); Monocytes Percent Auto 9.6 % (2.0-11.0); Neutrophils Absolute Auto 3.65 K/mm3 (1.70-7.20); Neutrophils Percent Auto 49.4 % (50.0-70.0); Platelet Count Result 327 K/mm3 (150-420); Red Blood Count 4.14 M/mm3 (4.20-5.40); Red Cell Distribution Width 12.9 % (11.6-14.4); White Blood Count 7.4 K/mm3 (4.8-10.8)
[2024-06-03 08:23] LABS: Alanine Aminotransferase 16 U/L (14-59); Albumin Level 3.7 g/dL (3.4-5.0); Alkaline Phosphatase 69 U/L (46-116); Anion Gap 8 mmol/L (4-12); Aspartate Amino Transferase < 10 U/L (15-37); Bilirubin,Total 0.2 mg/dL (0.00-1.00); Blood Urea Nitrogen 26 mg/dL (7-18); Calcium 9.8 mg/dL (8.5-10.1); Carbon Dioxide 28 mmol/L (21-32); Chloride 108 mmol/L (98-108); Cholesterol 228 mg/dL (0-200); Estimated Glomerular Filt Rate > 60; Glucose 100 mg/dL (70-99); HDL Direct 62 mg/dL (40-60); LDL Cholesterol Calculated 154 mg/dL (<130); Osmolality Calculated 302 mOsm/kg (285-295); Potassium 4.5 mmol/L (3.5-5.1); Sodium 144 mmol/L (136-145); Triglycerides 58 mg/dL (0-150)
[2024-06-03 09:33] LABS: Thyroid Stimulating Hormone Reflex 1.21 u/IU/mL (0.36-3.74)
== END 2024-06-03 07:07 | disposition home or self-care (01) ==
LOC: CHSLAB 07:07
PROVIDERS: PCP Family Medicine; Visit Provider Family Medicine
DX: E03.9 Hypothyroidism, unspecified (principal); I10 Essential (primary) hypertension
CPT/HCPCS: 36415; 80053; 80061; 84443; 85025

== ENCOUNTER 2024-07-02 08:30 | Outpatient (CLI) | payer MEDICARE, SELFPAY ==
--- NOTE | ~2024-07-02 | MM_ITS ---
EXAMINATION: MM screening preethi BI w nancy HISTORY: Screening TECHNIQUE: Craniocaudal and mediolateral oblique 3-D tomosynthesis images were obtained and synthetic 2-D images were generated. CAD analysis was submitted and interpreted. COMPARISON: Comparison to multiple prior studies sequentially, with oldest reviewed study dated 04/18. BREAST PARENCHYMAL COMPOSITION: Not Dense: The breasts are almost entirely fatty. FINDINGS: There is no evidence of suspicious mass, calcification, or architectural distortion to sugg est malignancy in either breast. There has been no suspicious interval change. IMPRESSION: 1. No mammographic evidence of malignancy. 2. Recommend routine screening mammography in one year. BI-RADS Category 1: Negative Reviewed, dictated and finalized at location []
--- NOTE | ~2024-07-02 | DEXA_ITS ---
Bone Density Report Name: AMY JULES Age: 69 Sex: Female Ethnicity: White Date of : 1955 Indication: postmenopausal; screening for osteoporosis; Referring Provider: Ankit Middleton Study: Bone densitometry was performed. Exam Date: July 02, 2024 Accession number: [id number] Bone Density: Region BMD T-score Z-score Classification AP Spine(L1-L4) 1.012 -0.3 1.8 Normal Femoral Neck (Left) 0.881 0.3 2.0 Normal Total Hip (Left) 1.142 1.6 3.1 Normal Femoral Neck (Right) 0.820 -0.3 1.5 Normal Total Hip (Right) 1.123 1.5 3.0 Normal Femoral Neck Mean 0.850 0.0 1.8 Normal Total Hip Mean 1.133 1.6 3.0 Normal World Health Organization criteria for BMD impression classify patients as: Normal (T-score at or above -1.0), Osteopenia (T-score between -1.0 and -2.5), or Osteoporosis (T-score at or below -2.5). 10-year Fracture Risk: FRAX not reported because: All T-scores for Spine Total, Hip Total, Femoral Neck at or above -1.0 Previous Exams: Region Exam Age BMD T-score BMD Change BMD Change Date g/cm2 vs Baseline vs Previous AP Spine (L1-L4) 07/02/2024 69 1.012 -0.3 -0.007 (-0.7%) -0.007 (-0.7%) 11/26/2020 65 1.020 -0.2 Total Hip(Left) 07/02/2024 69 1.142 1.6 0.085 (8.0%)* 0.085 (8.0%)* 11/26/2020 65 1.057 0.9 Total Hip(Right) 07/02/2024 69 1.123 1.5 0.062 (5.9%)* 0.062 (5.9%)* 11/26/2020 65 1.061 1.0 *Denotes significance at 95% confidence level, LSC for AP Spine = 0.022 g/cm2, LSC for Total Hip = 0.027 g/cm2 Clinical Information Provided by Patient: Has used the following medications: Vitamin D, multi Patient maximum height was 62.2 Menopause Age: 55 Does not regularly consume dairy products Drinks caffeinated beverages Onset of menses at age 14 Number of children 2 Impression: The patient has normal bone mass. No significant bone loss was observed. Discussion: BONE DENSITY IS ABOVE THE MINIMUM DESIRABLE LEVEL AT ALL SKELETAL SITES TESTED. This patient?s bone mineral density is above the minimum desirable level (T-score -1.0 or better) at all sites measured. The patient should follow a healthful lifestyle (good nutrition with adequate calcium and vitamin D, and appropriate weight-bearing exercise). Follow-Up: Consider repeating this study in 5 years or sooner if there is some new clinical indication. Reported by: YASMANI on 07/02/2024 9:22:00 AM. Reviewed, dictated and finalized at location A.
--- OUTSIDE RECORDS SUMMARY | 2024-07-02 08:46 | XMS_ITS | Referral Summary ---
Author Organization [address] lt Address [address] [place] [address] Care Team Providers Care De Icer Name Role Phone Mayito Triplett MD Primary Care Provider [phone] [phone] Allergies No known active allergies Medications raNITIdine (ZANTAC) 300 mg tablet Take 300 mg by mouth nightly Active lisinopril-hydr oCHLOROthiazide (ZESTORETIC) 10-12.5 mg per tabletIndicatio ns:hypertension Take 1 tablet by mouth daily 30 tablet 5 04/15/2019 Active Active Problems Problem Noted Date Diagnosed Date Essential hypertension 04/15/2019 Assessment & Plan (05/16/2019 10:30 AM RUNNER WORKER): She has responded well to the medication. Still awaiting labs from outside facility. Assessment & Plan (04/15/2019 3:27 PM RUNNER WORKER): Will start NATASHA-inhibitor and thiazide diuretic. Follow-up in 30 days. Restrict sodium in diet Gastroesophageal reflux disease without esophagi tis 04/15/2019 Assessment & Plan (05/16/2019 10:30 AM RUNNER WORKER): Stable today. Assessment & Plan (04/15/2019 3:25 PM RUNNER WORKER): Continue use of Zantac. GERD diet reviewed. She is going to start a diet restricting carbs. Screening for malignant neoplasm of breast 04/15 Assessment & Plan (05/16/2019 10:30 AM RUNNER WORKER): Still awaiting results from outside facility Mixed [...] on file Legal Sex Female 8:14 AM RUNNER WORKER Gender Identity Not on file Sexual Orientation Not on file Last Filed Vital Signs Vital Sign Reading Time Taken Comments Blood Pressure 134/82 05/16/2019 10:12 AM RUNNER WORKER Pulse 74 05/16/2019 10:12 AM RUNNER WORKER Temperature 36.9 C (98.4 F) 05/16/2019 10:12 AM RUNNER WORKER Respiratory Rate 16 05/16/2019 10:12 AM RUNNER WORKER Oxygen Saturation 95% 05/16/2019 10:12 AM RUNNER WORKER Inhaled Oxygen Concentration - - Weight 73.8 kg (162 lb 9.6 oz) 05/16/2019 10:12 AM RUNNER WORKER Height 157.5 cm (5' 2 ) 05/16/2019 10:12 AM RUNNER WORKER Body Mass Index 29.74 05/16/2019 10:12 AM RUNNER WORKER Plan of Treatment Not on file [place] [address] [address] Care Teams De Icer Relationship Specialty Start Date End Date Mayito Triplett MD [address] [place] [address] PCP - General 06/02/15
--- OUTSIDE RECORDS SUMMARY | 2024-07-02 08:46 | XMS_ITS | Clinical Summary ---
Author Organization [facility] Address [address] [place] [address] Care Team Providers Care Boat Fueler Name Role Phone Mayito Triplett MD Primary Care Provider [phone] [phone] Source Comments [employer] [facility]-owned [facility] and [facility] Practices is amultiple site organization consisting of ambulatory clinics and hospital sitesin [place] and [place]. This disclosure is being madepursuant to the Care Everywhere program and may not contain all information available regarding this patient. Last updated 17.[facility] Allergies No known active allergies Medications * Be aware that medications may not be up to date on this document. Alwaysverify current medications with the patient. No known medications Social History Tobacco Use Types Packs/Day Years Used Date Smoking Tobacco: Never Assessed Comments Unknown Sex and Gender Information Value Date Recorded Sex Assigned at Not on file Legal Sex Female 7:13 AM CDT Gender Identity Not on file Sexual Orientation [...] 2005 SCREENING FOR DIABETES 10/15/2016 COVID-19 VACCINE ( - 2023-2 5 season) 2023 DEPRESSION SCREENING 03/20/2024 INFLUENZA VACCINE (Season Ended) 2024 Respiratory Syncytial Virus (RSV) Vaccine Pt: or [...] on patient's age to complete this topic Insurance [facility] Care Teams Boat Fueler Relationship Specialty Start Date End Date Mayito Triplett MD [address] [place] [address] PCP - General Internal Medicine 10/15/16
--- OUTSIDE RECORDS SUMMARY | 2024-07-02 08:46 | XMS_ITS | Clinical Summary ---
Author Organization [address] lt Address [address] [place] [address] Care Team Providers Care Factory Machine Computer Operator Name Role Phone Mayito Triplett MD Primary Care Provider [phone] [phone] Allergies No known active allergies Medications raNITIdine (ZANTAC) 300 mg tablet Take 300 mg by mouth nightly Active lisinopril-hydr oCHLOROthiazide (ZESTORETIC) 10-12.5 mg per tabletIndicatio ns:hypertension Take 1 tablet by mouth daily 30 tablet 5 04/15/2019 Active Active Problems Problem Noted Date Diagnosed Date Essential hypertension 04/15/2019 Assessment & Plan (05/16/2019 10:30 AM SALES SUPPORT SPECIALIST): She has responded well to the medication. Still awaiting labs from outside facility. Assessment & Plan (04/15/2019 3:27 PM SALES SUPPORT SPECIALIST): Will start NATASHA-inhibitor and thiazide diuretic. Follow-up in 30 days. Restrict sodium in diet Gastroesophageal reflux disease without esophagi tis 04/15/2019 Assessment & Plan (05/16/2019 10:30 AM SALES SUPPORT SPECIALIST): Stable today. Assessment & Plan (04/15/2019 3:25 PM SALES SUPPORT SPECIALIST): Continue use of Zantac. GERD diet reviewed. She is going to start a diet restricting carbs. Screening for malignant neoplasm of breast 04/15 Assessment & Plan (05/16/2019 10:30 AM SALES SUPPORT SPECIALIST): Still awaiting results from outside facility Mixed [...] on file Legal Sex Female 8:14 AM SALES SUPPORT SPECIALIST Gender Identity Not on file Sexual Orientation Not on file Obstetrics History Last Filed Vital Signs Vital Sign Reading Time Taken Comments Blood Pressure 134/82 05/16/2019 10:12 AM SALES SUPPORT SPECIALIST Pulse 74 05/16/2019 10:12 AM SALES SUPPORT SPECIALIST Temperature 36.9 C (98.4 F) 05/16/2019 10:12 AM SALES SUPPORT SPECIALIST Respiratory Rate 16 05/16/2019 10:12 AM SALES SUPPORT SPECIALIST Oxygen Saturation 95% 05/16/2019 10:12 AM SALES SUPPORT SPECIALIST Inhaled Oxygen Concentration - - Weight 73.8 kg (162 lb 9.6 oz) 05/16/2019 10:12 AM SALES SUPPORT SPECIALIST Height 157.5 cm (5' 2 ) 05/16/2019 10:12 AM SALES SUPPORT SPECIALIST Body Mass Index 29.74 05/16/2019 10:12 AM SALES SUPPORT SPECIALIST Plan of Treatment Not on file Insurance [facility] Care Teams Factory Machine Computer Operator Relationship Specialty Start Date End [place] [address] PCP - General 06/02/15
== END 2024-07-02 08:31 | disposition home or self-care (01) ==
PROVIDERS: PCP Family Medicine; Visit Provider Family Medicine
DX: Z12.31 Encounter for screening mammogram for malignant neoplasm of breast (principal); Z78.0 Asymptomatic menopausal state
CPT/HCPCS: 77063; 77067; 77080

== ENCOUNTER 2024-10-30 13:05 | Outpatient (CLI) | payer MEDICARE, SELFPAY ==
--- OUTSIDE RECORDS SUMMARY | 2024-10-30 13:09 | XMS_ITS | Clinical Summary ---
Author Organization [address] Address [address] [place] [address] Care Team Providers Care Investigations Manager Name Role Phone Mayito Triplett MD Primary Care Provider [phone] [phone] Allergies No known active allergies Medications raNITIdine (ZANTAC) 300 mg tablet Take 300 mg by mouth nightly Active lisinopril-hydr oCHLOROthiazide (ZESTORETIC) 10-12.5 mg per tabletIndicatio ns:hypertension Take 1 tablet by mouth daily 30 tablet 5 04/15/2019 Active Active Problems Problem Noted Date Diagnosed Date Essential hypertension 04/15/2019 Assessment & Plan (05/16/2019 10:30 AM TALEND DEVELOPER): She has responded well to the medication. Still awaiting labs from outside facility. Assessment & Plan (04/15/2019 3:27 PM TALEND DEVELOPER): Will start NATASHA-inhibitor and thiazide diuretic. Follow-up in 30 days. Restrict sodium in diet Gastroesophageal reflux disease without esophagi tis 04/15/2019 Assessment & Plan (05/16/2019 10:30 AM TALEND DEVELOPER): Stable today. Assessment & Plan (04/15/2019 3:25 PM TALEND DEVELOPER): Continue use of Zantac. GERD diet reviewed. She is going to start a diet restricting carbs. Screening for malignant neoplasm of breast 04/15 Assessment & Plan (05/16/2019 10:30 AM TALEND DEVELOPER): Still awaiting results from outside facility Mixed [...] on file Legal Sex Female 8:14 AM TALEND DEVELOPER Gender Identity Not on file Sexual Orientation Not on file Obstetrics History Last Filed Vital Signs Vital Sign Reading Time Taken Comments Blood Pressure 134/82 05/16/2019 10:12 AM TALEND DEVELOPER Pulse 74 05/16/2019 10:12 AM TALEND DEVELOPER Temperature 36.9 C (98.4 F) 05/16/2019 10:12 AM TALEND DEVELOPER Respiratory Rate 16 05/16/2019 10:12 AM TALEND DEVELOPER Oxygen Saturation 95% 05/16/2019 10:12 AM TALEND DEVELOPER Inhaled Oxygen Concentration - - Weight 73.8 kg (162 lb 9.6 oz) 05/16/2019 10:12 AM TALEND DEVELOPER Height 157.5 cm (5' 2) 05/16/2019 10:12 AM TALEND DEVELOPER Body Mass Index 29.74 05/16/2019 10:12 AM TALEND DEVELOPER Plan of Treatment Not on file Insurance [facility] Care Teams Investigations Manager Relationship Specialty Start Date End [place] [address] PCP - General 06/02/15
--- OUTSIDE RECORDS SUMMARY | 2024-10-30 13:09 | XMS_ITS | Patient Health Record ---
Author Organization [facility] Address [address] [place], [place] [id number] Care Team Providers Care Rip Sawyer Name Role Phone Ankit Middleton Unavailable Unavailable Reason For Referral No Information Plan Of Treatment No Information Insurance Providers Payer Name Payer Address Payer Phone Subscriber Number Group Number Insured Name Patient Relationship to Insured Coverage Start Date Coverage End Date [employer] [address] [place] [address] [id number] AMY JULES Self - patient is the insured [facility] [employer] [address] [place] [address] [id number] AMY JULES Self - patient is the insured
--- OUTSIDE RECORDS SUMMARY | 2024-10-30 13:09 | XMS_ITS | Clinical Summary ---
Author Organization [facility] Address [address] [place] [address] Care Team Providers Care Psychological Anthropologist Name Role Phone Mayito Triplett MD Primary Care Provider [phone] [phone] Source Comments [facility]-owned [facility] and [facility] Practices is amultiple site organization consisting of ambulatory clinics and hospital sitesin [place], [place]. This disclosure is being madepursuant to the Care Everywhere program and may not contain all information available regarding this patient. Last updated 17.[facility] Allergies No known active allergies Medications * [...] 10:41 AM CDT Height 157.5 cm (5' 2) 10/15/2016 10:41 AM CDT Body Mass Index [...] season) 2023 DEPRESSION SCREENING 03/20/2024 INFLUENZA VACCINE (#1) 2024 Respiratory Syncytial Virus (RSV) Vaccine Pt: [...] patient's age to complete this topic Insurance [facility] Care Teams Psychological Anthropologist Relationship Specialty Start Date End Date Mayito Triplett MD [address] [place] [address] PCP - General Internal Medicine 10/15/16
[2024-10-30 13:24] LABS: Add Urine Microscopic? YES; Appearance Urine Clear (Clear); Glucose Urine UA Negative (Negative); Leukocyte Esterase Ur Trace (Negative); Nitrate Urine Negative (Negative); Specific Grav Ur 1.020 (1.010-1.020)
== END 2024-10-30 13:06 | disposition home or self-care (01) ==
LOC: CHSLAB 13:06
PROVIDERS: PCP Family Medicine; Visit Provider Family Medicine
DX: R82.90 Unspecified abnormal findings in urine (principal)
CPT/HCPCS: 81001